=== PATIENT | female | born 1955 | race Two or more races ===

== ENCOUNTER 2017-12-28 12:47 | Emergency (ER) | payer OTHER ==
[~2017-12-28] VITALS: Ht 160 cm; Wt 55.3 kg
[2017-12-28 12:47] VITALS: BP 158/85
== END 2017-12-28 13:08 | disposition home or self-care (01) ==
LOC: ER 12:50
DX: G89.29 Other chronic pain (principal); M54.5 Low back pain
CPT/HCPCS: 99283; A4606; Z7610